=== PATIENT | male | born 1960 | race Two or more races ===

== ENCOUNTER 2016-04-22 05:58 | Day surgery (SDC) | payer MEDICAID ==
[2016-04-22] MEDS ORDERED: LIDOCAINE 1% 5 ML SDV ID PRN (06:41)
[2016-04-22] MEDS ORDERED: LR 1,000 ML IV ONE (06:41)
[2016-04-22] MEDS ORDERED: MIDAZOLAM 2 MG/2 ML VIAL ONE (07:09)
[2016-04-22] MEDS ORDERED: PROPOFOL/EMULSION 500 MG/50 ML BOTTLE IV ONE (07:11)
--- NOTE | 2016-04-22 08:56 | GPN ---
[f rep st] PROCEDURE NOTE PREPROCEDURE DIAGNOSIS: Screening colonoscopy. POSTPROCEDURE DIAGNOSIS: Normal colonoscopy. PROCEDURE: Colonoscopy. MEDICATIONS: Monitored anesthesia care. INDICATIONS: Ned Joe is a 55-year-old gentleman who needs a screening colonoscopy. He has never had a colonoscopy. He has no family history of colon cancer or colon polyps. He is otherwise healthy. He is ASA Class 1. The risks and benefits of the procedure were discussed with the patient and consent obtained. Risks include, but are not limited to bleeding, perforation, risks related to sedation. DESCRIPTION OF PROCEDURE: The pediatric colonoscope was advanced to the terminal ileum which appeared normal. The ileocecal valve, appendiceal orifice , cecum, ascending colon, hepatic flexure, transverse colon, splenic flexure, sigmoid colon, descending colon all appeared normal. Retroflexed views in the rectum appeared normal. There was red tinged fluid throughout the colon which I suspect is Gatorade or Alfredito-Aid. The appearance was not consistent with blood. IMPRESSION: Normal screening colonoscopy. RECOMMENDATIONS: 1. Advance diet as tolerated. 2. Continue present medications. 3. Discharge to home with escort. 4. Repeat screening colonoscopy in 10 years. 5. Thank you for allowing me to participate in the care of your patient. Please do not hesitate to call with questions. /[id number]/MODL MTDD
== END 2016-04-22 10:35 | disposition home or self-care (01) ==
LOC: FSGY 05:58
PROVIDERS: ATTEND Internal Medicine Gastroenterology
PROC: 0DJD8ZZ Inspection of Lower Intestinal Tract, Via Natural or Artificial Opening Endoscopic (ICD-10-PCS; principal; 2016-04-22 07:15)
DX: Z12.11 Encounter for screening for malignant neoplasm of colon (principal); J45.909 Unspecified asthma, uncomplicated; Z86.19 Personal history of other infectious and parasitic diseases
CPT/HCPCS: J2250; J2704